=== PATIENT | female | born 1995 | race Caucasian/White ===

== ENCOUNTER 2017-12-10 17:24 | Emergency (ER) | payer BC, OTHER ==
[2017-12-10] MEDS ORDERED: AZITHROMYCIN 500 MG TABLET PO ONE (18:05)
[2017-12-10] MEDS ORDERED: PREDNISONE 20 MG TAB PO ONE (18:05)
[2017-12-10] MEDS ORDERED: NAPROXEN 250 MG TABLET PO ONE (18:05)
--- NOTE | 2017-12-10 18:10 | Emergency Department Record ---
History of Present Illness - General Chief Complaint: Fever Stated Complaint: COUGHING,SORE THROAT,FEVER Time Seen by Provider: 12/10/17 18:05 Source: Patient Mode of Arrival: Ambulatory Limitations: No limitations - History of Present Illness Initial Comments: 22 yo female presents with cough for about one week. She has had fevers and green productive sputum. She has had associated sore throat. No NVD. She has had intermittent subjective fevers. NO rash. She is a non smoker. No underlying lung disease. As a child she would wheeze occasionally with a cold. MD Complaint: Other Onset/Timin -: Week(s) (1) Temperature Source: Subjective Context: Sick contacts Associated Symptoms: Cough, Nasal congestion, Rhinorrhea Treatments Prior to Arrival: Ibuprofen - Related Data Previous Rx's Medication Instructions Recorded Azithromycin [Zithromax] 250 mg PO DAILY #4 tab 12/10/17 Naproxen [Naprosyn] 500 mg PO Q12H #25 tab. 12/10/17 Prednisone [Prednisone 20Mg] 20 mg PO DAILY #4 tab 12/10/17 Allergies Allergy/AdvReac Type Severity Reaction Status Date / Time No Known Drug Allergies Allergy Verified 12/10/17 17:49 Travel Screening - Travel/Exposure Within Last 30 Days Have you traveled within the last 30 days?: No - Travel/Exposure Within Last Year Have you traveled outside the [place] in the last year?: No - Additonal Travel Details Have you been exposed to anyone with a communicable illness?: No - Travel Symptoms Symptom Screening: None Review of Systems Constitutional: Reports: Fever, Malaise. Denies: Chills Eyes: Denies: Eye discharge, Eye pain, Vision change ENT: Reports: Congestion, Throat pain Respiratory: Reports: Cough. Denies: Dyspnea, Hemoptysis, Stridor, Wheezes Cardiovascular: Denies: Chest pain, Syncope Endocrine: Denies: Fatigue Gastrointestinal: Denies: Abdominal pain, Diarrhea, Nausea, Vomiting Genitourinary: Reports: Abnormal menses (painful cramps). Denies: Dysuria, Urgency Musculoskeletal: Denies: Arthralgia, Back pain, Myalgia Skin: Denies: Bruising, Change in color, Rash Neurological: Denies: Headache Psychiatric: Reports: Anxiety (father this week in a car wreck), Depression Hematological/Lymphatic: Denies: Blood Clots, Easy bleeding, Easy bruising Past Medical History - SOCIAL HISTORY Smoking Status: Never smoker Alcohol Use: None, Rare Drug Use: None - RESPIRATORY Hx Respiratory Disorders: Yes Comment:: croup as child - CARDIOVASCULAR Hx Cardio Disorders: No - NEURO Hx Neuro Disorders: No - GI Hx Reflux: Yes (anxiety related) - Hx Genitourinary Disorders: Yes Hx Bladder Problem: Yes (small) - ENDOCRINE Hx Diabetes: No Hx Thyroid Disease: No - MUSCULOSKELETAL Hx Musculoskeletal Disorders: No - PSYCH Hx Anxiety: Yes Hx Behavior Problems: Yes Hx Depression: Yes Comment:: seeking conseling - HEMATOLOGY/ONCOLOGY Hx Bruising: Yes Family Medical History Any Significant Family History?: Yes Family Hx Comment (NOT TO BE USED IN PLACE OF ITEMS BELOW): non noted Physical Exam - General General Appearance: Alert, Oriented x3, Cooperative, No acute distress Limitations: No limitations - Head Head exam: Atraumatic, Normal inspection - Eye Eye exam: Normal appearance. negative: Conjunctival injection, Scleral icterus - ENT ENT exam: Normal exam, Mucous membranes moist, Normal orophraynx Ear exam: Normal external inspection Nasal Exam: Normal inspection. negative: Discharge, Dried blood Mouth exam: Normal external inspection. negative: Muffled voice Teeth exam: Normal inspection Throat exam: Normal inspection. negative: Tonsillar erythema, Tonsillomegaly, Tonsillar exudate, R peritonsillar mass, L peritonsillar mass - Neck Neck exam: Normal inspection, Full ROM. negative: Lymphadenopathy, Tenderness - Respiratory Respiratory exam: Decreased breath sounds, Rhonchi, Wheezes (minimal end expiratory). negative: Accessory muscle use, Prolonged expiratory, Respiratory distress, Stridor - Cardiovascular Cardiovascular Exam: Regular rate, Normal rhythm, Normal heart sounds - GI/Abdominal GI/Abdominal exam: Soft. negative: Tenderness - Rectal Rectal exam: Deferred - exam: Deferred - Extremities Extremities exam: Normal inspection, Full ROM, Normal capillary refill. negative: Tenderness - Back Back exam: Denies: CVA tenderness (R), CVA tenderness (L) - Neurological Neurological exam: Alert, Oriented X3 - Psychiatric Psychiatric exam: Normal affect, Normal mood - Skin Skin exam: Dry, Intact, Normal color, Warm Course Vital Signs 12/10/17 17:36 Temperature 98.9 F Pulse Rate 84 Respiratory 18 Rate Blood Pressure 127/79 Pulse Ox 99 - Reevaluation(s) Reevaluation #1: 12/10/17 18:15 Vitals reviewed No acute changes Well appearing Disposition Disposition: Discharge Clinical Impression: Bronchitis Disposition: Home, Self-Care Condition: (1) Good Instructions: Acute Bronchitis (ED) Additional Instructions: Rest and stay well hydrated Be seen again if worse, short of breath or any new concerns Prescriptions: Azithromycin [Zithromax] 250 mg PO DAILY #4 tab Naproxen [Naprosyn] 500 mg PO Q12H #25 tab. Prednisone [Prednisone 20Mg] 20 mg PO DAILY #4 tab Forms: Patient Portal Access Time of Disposition: 18:09 Quality - Quality Measures Quality Measures: N/A - Blood Pressure Screening Does Patient Have Any of the Following: No Blood Pressure Classification: Pre-Hypertensive BP Reading Systolic Measurement: 127 Diastolic Measurement: 79 Screening for High Blood Pressure: < Pre-Hypertensive BP, F/U Documented > [ [id number]] Pre-Hypertensive Follow-up Interventions: Referral to alternative/primary care provider.
== END 2017-12-10 18:28 | disposition home or self-care (01) ==
LOC: ER 17:24
DX: J20.9 Acute bronchitis, unspecified (principal)
CPT/HCPCS: 99282; J7512